=== PATIENT | male | born 1940 | race African-American/Black ===

== ENCOUNTER 2019-10-25 16:22 | Emergency (ER) | payer BC, OTHER ==
[~2019-10-25] VITALS: Ht 172.7 cm; Wt 75.0 kg
[2019-10-25] MEDS ORDERED: IBUPROFEN 600MG TABLET PO ONE (19:00)
[2019-10-25] MEDS ORDERED: ACETAMINOPHEN 325MG TABLET PO ONE (19:00)
[2019-10-25 21:00] VITALS: BP 145/100
== END 2019-10-25 22:03 | disposition home or self-care (01) ==
LOC: ER 16:22
DX: K05.219 Aggressive periodontitis, localized, unspecified severity (principal)
CPT/HCPCS: 70486; 99284

== ENCOUNTER 2025-05-27 16:06 | Emergency (ER) | payer OTHER, MEDICAID ==
[~2025-05-27] VITALS: Ht 182.9 cm; Wt 77.0 kg
[2025-05-27 16:10] VITALS: O2SAT 100
[2025-05-27] MEDS: SODIUM CHLORIDE 0.9% 1,000 ML IV ONE (16:30)
[2025-05-27] MEDS: LIDOCAINE 5% PATCH TOP SCH (16:30)
[2025-05-27 17:25] LABS: BASOPHILS % 0.7 % (0.0-2.0); EOSINOPHILS % 2.3 % (0.0-5.0); HEMATOCRIT. 38.0 % (42.0-52.0); HEMOGLOBIN. 12.4 g/dL (14.0-18.0); LYMPHOCYTES % 32.9 % (20.0-50.0); MEAN PLATELET VOLUME 8.6 fl (7.4-10.4); MONOCYTES % 9.7 % (2.0-8.0); NEUTROPHILS % 54.4 % (40.0-76.0); PLATELET 276 x1000/uL (130-400); RED BLOOD CELL COUNT 4.11 mill/uL (4.7-6.1); RED CELL DISTRIBUTION WIDTH 14.8 % (11.6-14.6)
[2025-05-27 17:50] LABS: CREATININE 1.3 mg/dL (0.6-1.3)
[2025-05-27 17:51] LABS: UREA NITROGEN BLOOD 18 mg/dL (9-23)
[2025-05-27 17:52] LABS: ASPARTATE AMINOTRANSFERASE 14 IU/L (<34); TROPONIN I HIGH SENSITIVITY 4 ng/L (3.0-53)
[2025-05-27 17:53] LABS: BILIRUBIN DIRECT < 0.1 mg/dL (<=3.0); BILIRUBIN TOTAL 0.3 mg/dL (0.1-1.0); PROTEIN TOTAL 6.4 g/dL (6.0-8.3)
[2025-05-27 19:32] VITALS: BP 156/85; PULSE 87; RESP 20; TEMP 37; O2SAT 100
== END 2025-05-27 19:39 | disposition home or self-care (01) ==
LOC: ER 16:06 → CMPBEDREQ 05-28 07:36
DX: R55 Syncope and collapse (principal); R53.1 Weakness; R06.02 Shortness of breath; E11.9 Type 2 diabetes mellitus without complications; I10 Essential (primary) hypertension
CPT/HCPCS: 99285; 96360; 71045; 96361; 80076; 80048; 83880; 83735; 85025; 85379; 84484; 36415; 93005; J7030